=== PATIENT | male | born 1965 | race Caucasian/White ===

== ENCOUNTER 2019-10-26 21:20 | Outpatient (CLI) | payer MEDICARE, BC | END 2019-10-26 21:21 | disposition critical access hospital (66) | LOC: EMS 21:20 | PROVIDERS: ATTEND Surgery | DX: T40.2X1A Poisoning by other opioids, accidental (unintentional), initial encounter (principal); R40.2411 Glasgow coma scale score 13-15, in the field [EMT or ambulance]; R00.0 Tachycardia, unspecified; Y92.003 Bedroom of unspecified non-institutional (private) residence as the place of occurrence of the external cause ==

== ENCOUNTER 2019-10-26 21:40 | Observation (INO) | payer MEDICARE, BC ==
--- NOTE | 2019-10-26 21:47 | ED Physician Documentation ---
History of Present Illness - Stated complaint Stated Complaint: AMS - History obtained from History obtained from: Patient - History of Present Illness Timing: Prior to arrival - Additonal information Additional information: Is a 54-year-old male presents by ambulance with complaints that he passed out at home. They were thinking that he took too many pain medications because he took 5 5 mg OxyContin 10 oxycodone tablets over the course of about 3 hours. He was taking those because he had a partial left foot amputation 13 days ago for a nonhealing wound. Is been staying at his aunts house while he is recuperating and they had just gone out to dinner. They come home and he remembers getting home but that is the last thing that he remembers. According the aunt he had walked in and sat down on the end of his bed and she had walked back out to get something and came right back in and he was slumped over had not fallen off the bed. They pushed him back and he was not breathing she could see his heart racing in his chest. They called 911 and she did do some rescue breaths. Ambulance arrived and did give him adenosine 6 mg IV for reported SVT and also Narcan IV.Patient says he does have a history of SVT in the past. He did not have a seizure and has no history of seizures. Other than the issue going on with his left foot currently he has not had any recent illness. Does not have a sore throat or stuffy nose, no coughing. He did not feel any palpitations. He has had no shortness of breath. Denies history of DVT. Has had no nausea or vomiting. They took the bandage down and changed it today and he said it still looks a little red. He is on clindamycin for that. He does not take anything for rate control for his history of SVT. Review of Systems Constitutional: denies: Fever Ears: denies: Ear pain Nose: denies: Congestion Throat: denies: Sore throat Cardiac: denies: Chest pain / pressure, Palpitations Respiratory: denies: Dyspnea, Cough GI: denies: Nausea, Vomiting, Diarrhea : denies: Dysuria Skin: reports: Other (Healing wound on the left foot) Neurologic: reports: Syncope. denies: Head injury Endocrine: reports: Other (He is diabetic) PD PAST MEDICAL HISTORY - Present Medications Home Medications: Ambulatory Orders Medication Instructions Recorded Confirmed Aspirin Chewable [[place] Heber 81 mg PO DAILY 10/27/19 10/27/19 Aspirin] Clindamycin [Cleocin] 3 cap PO Q8HR 10/27/19 10/27/19 Gabapentin 600 mg PO Q8HR 10/27/19 10/27/19 Lisinopril [Zestril] 20 mg PO DAILY 10/27/19 10/27/19 Naproxen 500 mg PO BID PRN 10/27/19 10/27/19 Ondansetron [Ondansetron Odt] 4 mg PO Q8HR PRN 10/27/19 10/27/19 Oxycodone HCl 5 mg PO BID PRN 10/27/19 10/27/19 Zolpidem Tartrate [Edluar] 10 mg PO QPM PRN 10/27/19 10/27/19 metFORMIN [Glucophage] 500 mg PO BID 10/27/19 10/27/19 - Allergies Allergies/Adverse Reactions: Allergies Allergy/AdvReac Type Severity Reaction Status Date / Time No Known Drug Allergies Allergy Verified 10/26/19 21:50 PD ED PE NORMAL - Vitals Vital signs reviewed: Yes - General General: Alert and oriented X 3, No acute distress, Well developed/nourished - HEENT HEENT: Atraumatic, PERRL, EOMI, Moist mucous membranes, Pharynx benign - Neck Neck: Supple, no meningeal sign, No adenopathy, No JVD - Cardiac Cardiac: No murmur, Strong equal pulses, Other (Tachycardic) - Respiratory Respiratory: No respiratory distress, Clear bilaterally - Abdomen Abdomen: Normal bowel sounds, Soft, Non tender - Derm Derm: Normal color, Warm and dry, No rash - Extremities Extremities: Other (The left lower extremity is wrapped in a cast and Brant wrap bandaging. There is no external staining on this.) - Neuro Neuro: Alert and oriented X 3, inspection machine tender 2-12 intact, No motor deficit, No sensory deficit, Normal speech Results - Vitals Vitals: Vital Signs - 24 hr 10/26/19 10/27/19 10/27/19 21:44 00:11 00:48 Temperature 36.7 C 36.8 C Heart Rate 120 H 110 H 123 H Respiratory 18 18 14 Rate Blood Pressure 150/105 H 138/71 H 137/100 H O2 Saturation 98 95 97 10/27/19 01:05 Temperature Heart Rate 123 H Respiratory 18 Rate Blood Pressure 140/90 H O2 Saturation 99 Oxygen O2 Source Room air - EKG (time done) 8 Rate: Rate (enter#) (118), Tachy Rhythm: Sinus tachycardia Intervals: No: Wide QRS Ischemia: Non specific changes Compare to prior EKG: Old EKG unavailable - Labs Labs: Laboratory Tests 10/26/19 10/26/19 10/26/19 21:57 21:57 23:02 WBC 5.6 RBC 4.16 L Hgb 10.9 L Hct 34.2 L MCV 82.2 MCH 26.2 L MCHC 31.9 L RDW 13.9 Plt Count 197 MPV 10.3 Neut # (Auto) 4.3 Lymph # (Auto) 0.8 L [place] # (Auto) 0.4 Eos # (Auto) 0.1 Baso # (Auto) 0.0 Absolute Nucleated RBC 0.00 Nucleated RBC % 0.0 Sodium 137 Potassium 3.5 Chloride 100 L Carbon Dioxide 28 Anion Gap 9.0 BUN 16 Creatinine 1.3 H Estimated GFR (MDRD) 58 L Glucose 227 H Calcium 8.1 L Total Bilirubin 0.5 AST 13 ALT 12 Alkaline Phosphatase 70 Total Protein 6.4 L Albumin 3.4 Globulin 3.0 Albumin/Globulin Ratio 1.1 Lipase 36 Urine Color YELLOW Urine Clarity CLEAR Urine pH 5.0 Ur Specific Scott >=1.030 H Urine Protein NEGATIVE Urine Glucose (UA) 500 H Urine Ketones NEGATIVE Urine Occult Blood MODERATE H Urine Nitrite NEGATIVE Urine Bilirubin NEGATIVE Urine Urobilinogen 0.2 (NORMAL) Ur Leukocyte Esterase NEGATIVE Urine RBC 11-25 H Urine WBC 0-3 Ur Squamous Epith Cells RARE Squamous Urine Crystals 3-5 Calcium Oxalate Urine Bacteria Rare Urine Casts 26-50 Hyaline Casts Urine Mucus Few Strands Ur Microscopic Review INDICATED Urine Culture Comments NOT INDICATED Ethyl Alcohol < 5.0 - Rads (name of study) CXR Radiology: See rad report (Neg acute) PD MEDICAL DECISION MAKING - ED course Complexity details: reviewed results, re-evaluated patient, d/w patient, d/w family ED course: Labs are normal. Patient is not intoxicated. He is remained awake and alert here. The rhythm strips from the ambulance showed rates in the 140s that appeared to be a narrow complex tachycardia. His heart rate here was in the 1 10-1 20 range. He was given a liter of fluids because his urine did look very concentrated the heart rate remained elevated and in fact was creeping up finally into the 140s. Was given Cardizem 20 mg IV because his blood pressure was also elevated. Discussed with him I think he should be admitted for syncopal episode and the tachycardia he really was not keen on the idea of being admitted but consented after his aunt essentially told him she would not take him home; it would just be too worrisome for her. Departure - Departure Disposition: ED Place in Observation Clinical Impression: Syncope Condition: Good
[2019-10-26] MEDS ORDERED: SODIUM CHLORIDE 0.9% 1,000 ML IV ONE (22:08)
[2019-10-26 22:19] LABS: BASOPHILS % (AUTO) 0.4 %; EOSINOPHILS # (AUTO) 0.1 10^3/uL (0.0-0.7); EOSINOPHILS % (AUTO) 2.1 %; HGB - HEMOGLOBIN 10.9 g/dL (14.0-18.0); LYMPHOCYTES # (AUTO) 0.8 10^3/uL (1.5-3.5); LYMPHOCYTES % (AUTO) 14.3 %; MEAN CORPUSCULAR HEMOGLOBIN 26.2 pg (27.0-31.0); MEAN CORPUSCULAR HGB CONC 31.9 g/dL (32.0-36.0); MEAN CORPUSCULAR VOLUME 82.2 fL (80.0-94.0); MEAN PLATELET VOLUME 10.3 fL (7.4-11.4); MONOCYTES # (AUTO) 0.4 10^3/uL (0.0-1.0); MONOCYTES % (AUTO) 6.4 %; NEUTROPHILS # (AUTO) 4.3 10^3/uL (1.5-6.6); NEUTROPHILS % (AUTO) 76.4 %; PLT - PLATELET COUNT 197 10^3/uL (130-450); RED BLOOD COUNT 4.16 10^6/uL (4.70-6.10); RED CELL DISTRIBUTION WIDTH 13.9 % (12.0-15.0); WHITE BLOOD COUNT 5.6 x10^3/uL (4.8-10.8)
[2019-10-26 22:32] LABS: ALBUMIN 3.4 g/dL (3.2-5.5); ALBUMIN/GLOBULIN RATIO 1.1 (1.0-2.2); ALKALINE PHOSPHATASE 70 IU/L (42-121); ALT ALANINE AMINOTRANSFERASE 12 IU/L (10-60); AST ASPARTATE AMINOTRANSFERASE 13 IU/L (10-42); BILIRUBIN,TOTAL 0.5 mg/dL (0.2-1.0); BUN - BLOOD UREA NITROGEN 16 mg/dL (6-20); CALCIUM 8.1 mg/dL (8.5-10.3); CARBON DIOXIDE - CO2 28 mmol/L (21-32); CHLORIDE 100 mmol/L (101-111); CREATININE 1.3 mg/dL (0.6-1.2); GFR - MDRD 58 (>89); GLUCOSE 227 mg/dL (70-100); LIPASE 36 U/L (22-51); SODIUM 137 mmol/L (135-145); TOTAL PROTEIN 6.4 g/dL (6.7-8.2)
--- NOTE | 2019-10-26 22:44 | XRAY Report ---
Reason: chest pain Procedure Date: 10/26/2019 Accession Number: [id number] / [id number] Procedure: XR - Chest 1 View X-Ray CPT Code: 22220 Final Report FULL RESULT: EXAM: CHEST RADIOGRAPHY EXAM DATE: 10/26/2019 10:21 PM. CLINICAL HISTORY: Chest pain. COMPARISON: None. TECHNIQUE: 1 view. FINDINGS: Lungs/Pleura: No consolidation, airspace disease, pleural effusion or pneumothorax. Very superior bilateral lung apices excluded from the image. Mediastinum: Within exam limitations, the cardiomediastinal contour is normal. IMPRESSION: No acute cardiopulmonary disease seen. RADIA
[2019-10-26 23:37] LABS: BILIRUBIN,URINE NEGATIVE (NEGATIVE); GLUCOSE, URINE (UA) 500 mg/dL (NEGATIVE); KETONES,URINE (UA) NEGATIVE (NEGATIVE); LEUKOCYTE ESTERASE, URINE NEGATIVE (NEGATIVE); NITRITE,URINE NEGATIVE (NEGATIVE); OCCULT BLOOD,URINE MODERATE (NEGATIVE); PROTEIN,URINE NEGATIVE (NEGATIVE); UROBILINOGEN,URINE 0.2 (NORMAL) E.U./dL (NORMAL)
[2019-10-26 23:38] LABS: CLARITY,URINE CLEAR (CLEAR)
[2019-10-26 23:43] LABS: BACTERIA,URINE Rare /HPF (None Seen); MUCUS,URINE Few Strands; SQUAMOUS EPITHELIAL CELL,UR RARE Squamous (<= Few)
[2019-10-26 23:44] LABS: CASTS, URINE 26-50 Hyaline Casts /LPF; CRYSTALS,URINE 3-5 Calcium Oxalate /LPF
[2019-10-27] MEDS ORDERED: diltiaZEM INJ 5 MG/ML VIAL IVP STA (00:40)
[2019-10-27] MEDS ORDERED: SODIUM CHLORIDE FLUSH 0.9% 10 ML SYRINGE IVP PRN (01:11)
[2019-10-27] MEDS ORDERED: POTASSIUM CHLORIDE 20 MEQ TABLET PO ONE (01:17)
--- NOTE | 2019-10-27 01:26 | HISTORY & PHYSICAL EXAMINATION ---
Chief Complaint - Chief Complaint Chief Complaint: Syncope History of Present Illness - Admitted From Admitted From:: Home - History Obtained From Records Reviewed: Yes History obtained from: Patient, Family, ER Physician - History of Present Illness HPI Comment/Other: This is a 54-year-old male with a past medical history significant for type 2 diabetes, arrhythmia, hypertension, recent left foot transmetatarsal amputation who presents today after having a syncopal episode at home. He states he was laying on his bed at around 8 PM when he suddenly passed out. His family witnessed him passing out and noticed that his heart was beating quite fast. They try to wake him up and he would take deep breaths that time but was unresponsive. The immediately called 911 and EMS arrived shortly after and before any intervention was given, the patient had regained consciousness. He was reportedly and SVT with heart rates in the 140s upon EMS arrival. He was given Narcan and 6 mg of adenosine. He states he was a little bit confused immediately after but is now back to his baseline. He states he has had prior episodes of syncope in the past. The most recent was over 10 years ago. He states he was diagnosed with an arrhythmia when he was a child and saw consulting project director at that time but no longer sees a consulting project director. He states he was previously on metoprolol but this was stopped as he was doing well. He reports having palpitations every once in a while but whenever he has that symptom, he bears down and the symptoms resolve. Denies a history of blood clots. He states he did not have chest pain, dyspnea, palpitations prior to the event today. He reports that he did take 5 oxycodone within a 3-hour period which is more than he usually takes as he has been to get once every 4 hours. He has been on oxycodone for nearly 6 years due to multiple interventions on his left foot. He did have a cup of coffee this afternoon and he normally does not drink caffeine. Reports feeling quite thirsty at this time. He states he has been ea ting and drinking okay over the last few days but that he lost about 30 pounds this month as his appetite has been quite poor overall. He reports he has been hospitalized multiple times for interventions on his left foot and that his father was hospitalized for a neck fracture and this has put him under a lot of stress and he has not been eating as well. States his most recent intervention on his left foot was about 2 weeks ago at [facility]. He has had 4 interventions on that foot with the most recent being a transmetatarsal amputation. The splint was removed 3 days ago and the leg is currently bandaged. He is on clindamycin postoperatively. The patient at this time repor ts feeling well and would like to go home. He states he has no chest pain, dyspnea, palpitations, dizziness, lightheadedness. He reports no nausea, vomiting, abdominal pain, diarrhea. In the emergency department, he is found to be afebrile with a temperature of 36.7 C. He was tachycardic with a heart rate of 120 and this was sinus tachycardia on telemetry. He was hypertensive with a blood pressure of 150/105. He was not tachypneic and saturating well on room air. Labs are unremarkable except for a creatinine of 1.3 and a blood glucose of 227. His urinalysis did reveal a specific gravity greater than 1.030 and 26-50 hyaline casts. EKG number department reveals sinus tachycardia without ST segment changes. He was observed emergency department for a couple hours but became tachycardic in the 130s and so he was administered 20 mg of IV Cardizem and medicine was consulted for admission. History - Past Medical History Cardiovascular: reports: Hypertension, Arrhythmia Endocrine/Autoimmune: reports: Type 2 diabetes Musculoskeletal: reports: Other (Left foot infection.) - Past Surgical History Ortho: reports: Other (Multiple interventions on his left foot including transmetatarsal amputation.) - Family & Social History Family History Comment/Other: His mother and aunt both have hypothyroidism. One of his other aunts also had a history of arrhythmias. Living arrangement: At home Living Situation: With family Social History Notes: He has not been employed for 6 years since he has had multiple interventions on his left foot. Previously employed as a valdez. He does not smoke and rarely drinks alcohol. - POLST Patient has POLST: No Meds/Allgy - Home Medications Home Medications: Ambulatory Orders Medication Instructions Recorded Confirmed Aspirin Chewable [St Heber 81 mg PO DAILY 10/27/19 10/27/19 Aspirin] Clindamycin [Cleocin] 3 cap PO Q8HR 10/27/19 10/27/19 Gabapentin 600 mg PO Q8HR 10/27/19 10/27/19 Lisinopril [Zestril] 20 mg PO DAILY 10/27/19 10/27/19 Naproxen 500 mg PO BID PRN 10/27/19 10/27/19 Ondansetron [Ondansetron Odt] 4 mg PO Q8HR PRN 10/27/19 10/27/19 Oxycodone HCl 5 mg PO BID PRN 10/27/19 10/27/19 Zolpidem Tartrate [Edluar] 10 mg PO QPM PRN 10/27/19 10/27/19 metFORMIN [Glucophage] 500 mg PO BID 10/27/19 10/27/19 - Allergies Allergies/Adverse Reactions: Allergies Allergy/AdvReac Type Severity Reaction Status Date / Time No Known Drug Allergies Allergy Verified 10/26/19 21:50 Review of Systems - Constitutional Constitutional: reports: Poor appetite, Weight loss. denies: Fatigue, Fever, Weakness - Cardiovascular Cariovascular: reports: Palpitations, Syncope. denies: Chest pain, Lightheadedness, Exertional dyspnea, Decr. exercise tolerance - Respiratory Respiratory: denies: Cough, SOB at rest, SOB with exertion - Gastrointestinal Gastrointestinal: denies: Abdominal pain, Diarrhea, Nausea, Vomiting - Genitourinary Genitourinary: denies: Dysuria, Frequency, Urgency - Musculoskeletal Musculoskeletal: reports: Joint pain - Integumentary Integumentary: denies: Rash - Neurological Neurological: denies: General weakness, Dizziness - All Other Systems All Other Systems: reports: Reviewed and negative Prior Level of Functionality: He is independent with his ADLs. He is currently using crutches to ambulate as he is nonweightbearing on his left foot. Exam - Vital Signs Reviewed Vital Signs: Yes Vital Signs: Vital Signs x48h Temp Pulse Resp BP Pulse Ox 10/27/19 01:05 123 H 18 140/90 H 99 10/27/19 00:48 36.8 C 123 H 14 137/100 H 97 10/27/19 00:11 110 H 18 138/71 H 95 10/26/19 21:44 36.7 C 120 H 18 150/105 H 98 - Physical Exam General Appearance: positive: No acute distress, Alert Eyes Bilateral: positive: Normal inspection ENT: positive: ENT inspection nml, Dry mucous membranes Neck: positive: Nml inspection Respiratory: positive: No respiratory distress. negative: Wheezes, Rales, Rhonchi Cardiovascular: positive: No murmur, Tachycardia. negative: Irregularly irregular, Bradycardia, Systolic murmur, Diastolic murmur Peripheral Pulses: positive: 2+ Abdomen: positive: Non-tender, No distention. negative: Tenderness, Guarding, Rebound Skin: positive: No rash, Warm, Dry Extremities: positive: Full ROM, No pedal edema, Other (Bandage and dressing is in place over the left lower extremity below the knee to the foot. I did not remove the bandage.) Neurologic/Psychiatric: positive: Oriented x3, Other (No focal motor deficits on exam.). negative: Disoriented to person, Disoriented to place, Disoriented to time Conclusion/Plan - Problem List (1) Syncope Conclusion/Plan: Syncope may be related to SVT but we will need to rule out other etiologies as it is not common for SVT to cause hemodynamic compromise and syncope. His EKG now shows sinus tachycardia without ST segment changes and no shortened MA interval or delta waves to suggest [id number]-Ilala. The multiple tablets of oxycodone may have contributed to syncope as well. He does appear dehydrated and so we will check orthostatics. We will obtain an echocardiogram and trend his troponins. We will monitor him on telemetry. Qualifiers: Encounter type: initial encounter (2) SVT (supraventricular tachycardia) Conclusion/Plan: He reports having a previous history of arrhythmia and was previously on metoprolol. EMS found him in SVT upon arrival with heart rates greater than 140. He was given adenosine 6 mg IV and is now in sinus tachycardia with heart rate in the 120s. We will start him on 25 mg of metoprolol twice a day and obtain echocardiogram. We will check a TSH as well. Continue to monitor him on telemetry and optimize his electrolytes as his potassium is 3.5. (3) Dehydration Conclusion/Plan: Appears slightly hypervolemic on exam and his urinalysis is suggestive of dehydration as the gravity is quite elevated and he has many hyaline casts. We will continue him on IV fluids at 100 cc an hour. (4) Status post transmetatarsal amputation of left foot Conclusion/Plan: He is status post transmetatarsal amputation of the left foot about 2-week ago at [facility] for a left foot infection secondary to hardware. He is on clindamycin which we will continue. We will also resume his home oxycodone. (5) Type 2 diabetes mellitus Conclusion/Plan: Reports his last A1c was around 7 and he is on metformin at home. His blood glucose is greater than 200. We will place him on sliding scale and carb controlled diet. Check an A1c in the morning (6) Hypertension Conclusion/Plan: He is on lisinopril at home and he is currently slightly hypertensive. Will resume his lisinopril and start him on metoprolol for the SVT. - Lab Results Lab results reviewed: Yes Fish Bones: 10/26/19 21:57 10/26/19 21:57 - Diagnostic Imaging Results Diagnostic Imaging Results: positive: Final report reviewed - EKG Results EKG Interpreted Independently: Yes EKG Comparison: No prior EKG EKG Findings: His EKG reveals sinus tachycardia without ST segment changes. There is no shortened MA interval or delta waves to suggest [id number]. Core Measures - Anticipated LOS I expect patient to be DC'd or transferred within 96 hours.: Yes - Issues Hospital Issues and Management Plan: 54-year-old male admitted for syncope after being found in SVT. We will observe overnight and obtain echocardiogram. Start him on metoprolol. - DVT/VTE - Prophylaxis VTE/DVT Device ordered at admit?: No Not Ordered - Medical Reason: Contraindicated VTE/DVT Prophylaxis med ordered at admit?: Yes
[2019-10-27] MEDS: CLINDAMYCIN 150 MG CAPSULE PO SCH ×2 (01:51→08:21)
[2019-10-27] MEDS: METOPROLOL TARTRATE 25 MG TABLET PO SCH ×2 (01:52→08:18)
[2019-10-27] MEDS: ACETAMINOPHEN 325 MG TABLET PO PRN ×3 (01:53→08:19)
[2019-10-27] MEDS: oxyCODONE 5 MG TABLET PO PRN ×3 (01:53→08:19)
[2019-10-27] MEDS ORDERED: LACTATED RINGERS 1,000 ML IV SCH (02:00)
[2019-10-27 05:29] LABS: BASOPHILS % (AUTO) 0.5 %; EOSINOPHILS # (AUTO) 0.2 10^3/uL (0.0-0.7); HGB - HEMOGLOBIN 10.8 g/dL (14.0-18.0); LYMPHOCYTES # (AUTO) 2.1 10^3/uL (1.5-3.5); LYMPHOCYTES % (AUTO) 28.5 %; MEAN CORPUSCULAR HEMOGLOBIN 26.8 pg (27.0-31.0); MEAN CORPUSCULAR HGB CONC 32.5 g/dL (32.0-36.0); MEAN CORPUSCULAR VOLUME 82.4 fL (80.0-94.0); MEAN PLATELET VOLUME 11.3 fL (7.4-11.4); MONOCYTES # (AUTO) 0.5 10^3/uL (0.0-1.0); MONOCYTES % (AUTO) 6.7 %; NEUTROPHILS # (AUTO) 4.6 10^3/uL (1.5-6.6); PLT - PLATELET COUNT 254 10^3/uL (130-450); RED BLOOD COUNT 4.03 10^6/uL (4.70-6.10); WHITE BLOOD COUNT 7.5 x10^3/uL (4.8-10.8)
[2019-10-27 05:44] LABS: HB2 TOTAL 10.9 g/dL; HEMOGLOBIN A1C 0.52 g/dL; HEMOGLOBIN A1C % 6.5 % (4.6-6.2)
[2019-10-27 05:45] LABS: CALCIUM 8.4 mg/dL (8.5-10.3); CREATININE 1.2 mg/dL (0.6-1.2); MAGNESIUM 1.8 mg/dL (1.7-2.8)
[2019-10-27] MEDS ORDERED: GABAPENTIN 300 MG CAPSULE PO SCH (06:00)
[2019-10-27] MEDS ORDERED: INSULIN ASPART 300 UNIT/3 ML PEN SUBQ SCH (08:00)
[2019-10-27 08:28] VITALS: BP 141/87
[2019-10-27] MEDS ORDERED: ENOXAPARIN 40 MG/0.4 ML SYRINGE SUBQ SCH (09:00)
[2019-10-27] MEDS ORDERED: ASPIRIN EC 81 MG TABLET PO SCH (09:00)
[2019-10-27] MEDS ORDERED: lisinopriL 20 MG TABLET PO SCH (09:00)
[2019-10-27] MEDS ORDERED: SODIUM CHLORIDE FLUSH 0.9% 10 ML SYRINGE IVP SCH (09:00)
--- NOTE | 2019-10-27 10:16 | PHARMACY PROGRESS NOTE ---
- Best Possible Medication History Admit Date and Time: 10/27/19 0111 Processed by: Nursing (HARPREET ACOSTA) Medication History completed: Yes As the person ultimately responsible for medication therapy, providers are able to order a medication from an existing home medication list in [facility] via the "Reconcile Routine" prior to Confirmation of that medication by operations support specialist. Such practice is discouraged except when the physician, in their clinical judgment, deems that a medical need exists for a medication without regard to previous use.
--- NOTE | 2019-10-27 11:12 | DISCHARGE SUMMARY ---
Discharge Summary Admit Date: 10/27/19 Discharge Date: 10/27/19 Discharging Provider: Ashok Galarza Primary Care Provider: Dr. Dickinson Code Status: Attempt Resuscitation Condition at Discharge: Poor Discharge Disposition: 07 Against Medical Advice Discharge Facility Name: home - DIAGNOSES Admission Diagnoses: (1) Syncope (2) SVT (supraventricular tachycardia) (3) Dehydration (4) Status post transmetatarsal amputation of left foot (5) Type 2 diabetes mellitus (6) Hypertension Discharge Diagnoses with Status of Each Condition: 1) Syncope stable. pt has no syncope in hospital. multiple tablets of oxycodone may have contributed to syncope as well as his dehydrated. pt has unremarkable ECHO. pt has already signed AMA in the district loss prevention manager before I have his test result. I do not know why he want to sign AMA, why pt is so san[place] to sign AMA and left h ospital. I have no time to write down the risk of AMA. Pt followed with me to our hospitalist office, and I tried to help him write a metoprolol prescribe for him. Pt state he took Metoprolol before but he stopped it by himself. Nurse Rosario is with me at the time pt signed AMA (2) SVT (supraventricular tachycardia) resolved. pt is prescribed metoprolol (3) Dehydration resolved (4) Status post transmetatarsal amputation of left foot stable (5) Type 2 diabetes mellitus stable (6) Hypertension stable (7)AMA pt has already signed AMA in the district loss prevention manager before I have his test result. I do not know why he want to sign AMA, why pt is so san[place]ria to sign AMA and left hospital. I have no time to write down the risk of AMA. Pt followed with me to our hospitalist office, and I tried to help him write a metoprolol prescribe for him. Pt state he took Metoprolol before but he stopped it by himself. Nurse Rosario is with me at the time pt signed AMA - [facility] History of Present Illness: refer from Dr. Griffiths's HPI on 10/27/2019 This is a 54-year-old male with a past medical history significant for type 2 diabetes, arrhythmia, hypertension, recent left foot transmetatarsal amputation who presents today after having a syncopal episode at home. He states he was laying on his bed at around 8 PM when he suddenly passed out. His family witnessed him passing out and noticed that his heart was beating quite fast. They try to wake him up and he would take deep breaths that time but was unresponsive. The immediately called 911 and EMS arrived shortly after and before any intervention was given, the patient had regained consciousness. He was reportedly and SVT with heart rates in the 140s upon EMS arrival. He was given Narcan and 6 mg of adenosine. He states he was a little bit confused immediately after but is now back to his baseline. He states he has had prior episodes of syncope in the past. The most recent was over 10 years ago. He states he was diagnosed with an arrhythmia when he was a child and saw industrial garage servicer at that time but no longer sees a industrial garage servicer. He states he was previously on metoprolol but this was stopped as he was doing well. He reports having palpitations every once in a while but whenever he has that symptom, he bears down and the symptoms resolve. Denies a history of blood clots. He states he did not have chest pain, dyspnea, palpitations prior to the event today. He reports that he did take 5 oxycodone within a 3-hour period which is more than he usually takes as he has been to get once every 4 hours. He has been on oxycodone for nearly 6 years due to multiple interventions on his left foot. He did have a cup of coffee this afternoon and he normally does not drink caffeine. Reports feeling quite thirsty at this time. He states he has been eating and drinking okay over the last few days but that he lost about 30 pounds this month as his appetite has been quite poor overall. He reports he has been hospitalized multiple times for interventions on his left foot and that his father was hospitalized for a neck fracture and this has put him under a lot of stress and he has not been eating as well. States his most recent intervention on his left foot was about 2 weeks ago at [facility]. He has had 4 interventions on that foot with the most recent being a transmetatarsal amputation. The splint was removed 3 days ago and the leg is currently bandaged. He is on clindamycin postoperatively. The patient at this time reports feeling well and would like to go home. He states he has no chest pain, dyspnea, palpitations, dizziness, lightheadedness. He reports no nausea, vomiting, abdominal pain, diarrhea. In the emergency department, he is found to be afebrile with a temperature of 36.7 C. He was tachycardic with a heart rate of 120 and this was sinus tachycardia on telemetry. He was hypertensive with a blood pressure of 150/105. He was not tachypneic and saturating well on room air. Labs are unremarkable except for a creatinine of 1.3 and a blood glucose of 227. His urinalysis did reveal a specific gravity greater than 1.030 and 26-50 hyaline casts. EKG number department reveals sinus tachycardia without ST segment changes. He was observed emergency department for a couple hours but became tachycardic in the 1 30s and so he was administered 20 mg of IV Cardizem and medicine was consulted for admission. - HOSPITAL COURSE Hospital Course: pt was admitted for syncope. but pt signed AMA and left hospital. At the time pt signed AMA, I did not have pt's ECHO result yet. I do not know why he want to sign AMA, why pt is so san[place] to sign AMA and left hospital. I do not have choice to talk with pt, pt already signed AMA. I have no time to write down the risk of AMA. Pt followed with me to our hospitalist office, and I tried to help him write a metoprolol prescribe for him. Pt state he took Metoprolol before but he stopped it by himself. Nurse Rosario is with me at the time pt signed AMA 1) Syncope stable. pt has no syncope in hospital. multiple tablets of oxycodone may have contributed to syncope as well as his dehydrated. pt has unremarkable ECHO. pt has already signed AMA in the district loss prevention manager before I have his test result. I do not know why he want to sign AMA, why pt is so san[place] to sign AMA and left hospital. I have no time to write down the risk of AMA. Pt followed with me to our hospitalist office, and I tried to help him write a metoprolol prescribe for him. Pt state he took Metoprolol before but he stopped it by himself. Nurse Rosario is with me at the time pt signed AMA (2) SVT (supraventricular tachycardia) resolved. pt is prescribed metoprolol (3) Dehydration resolved (4) Status post transmetatarsal amputation of left foot stable (5) Type 2 diabetes mellitus stable (6) Hypertension stable (7)AMA pt has already signed AMA in the district loss prevention manager before I have his test result. I do not know why he want to sign AMA, why pt is so san[place] to sign AMA and left hospital. I have no time to write down the risk of AMA. Pt followed with me to our hospitalist office, and I tried to help him write a metoprolol prescribe for him. Pt state he took Metoprolol before but he stopped it by himself. Nurse Marlene is with me at the time pt signed AMA - ALLERGIES Allergies/Adverse Reactions: Allergies Allergy/AdvReac Type Severity Reaction Status Date / Time No Known Drug Allergies Allergy Verified 10/26/19 21:50 - MEDICATIONS Home Medications: Ambulatory Orders Medication Instructions Recorded Confirmed Aspirin Chewable [St Heber 81 mg PO DAILY 10/27/19 10/27/19 Aspirin] Clindamycin [Cleocin] 3 cap PO Q8HR 10/27/19 10/27/19 Gabapentin 600 mg PO Q8HR 10/27/19 10/27/19 Lisinopril [Zestril] 20 mg PO DAILY 10/27/19 10/27/19 Metoprolol Succinate 25 mg PO DAILY #15 tab.er.24h 10/27/19 Naproxen 500 mg PO BID PRN 10/27/19 10/27/19 Ondansetron [Ondansetron Odt] 4 mg PO Q8HR PRN 10/27/19 10/27/19 Oxycodone HCl 5 mg PO BID PRN 10/27/19 10/27/19 Zolpidem Tartrate [Edluar] 10 mg PO QPM PRN 10/27/19 10/27/19 metFORMIN [Glucophage] 500 mg PO BID 10/27/19 10/27/19 - PHYSICAL EXAM AT DISCHARGE Physical Exam Other/Comments: pt left with AMA, I do not have time to do physical examination to pt - LABS Result Diagrams: 10/27/19 05:00 10/27/19 05:00 - FOLLOW UP Follow Up: advise pt followup his PCP and industrial garage servicer - TIME SPENT Time Spent in Discharge (Minutes): 30
== END 2019-10-27 10:05 | disposition left against medical advice (07) ==
LOC: ED 21:40 → MS3 10-27 01:11
PROVIDERS: ADMIT Internal Medicine; ATTEND Nurse Practitioner Gerontology
DX: R55 Syncope and collapse (principal); I47.1 Supraventricular tachycardia; E86.0 Dehydration; Z89.432 Acquired absence of left foot; E11.9 Type 2 diabetes mellitus without complications; I10 Essential (primary) hypertension; Z53.21 Procedure and treatment not carried out due to patient leaving prior to being seen by health care provider; Z79.82 Long term (current) use of aspirin; Z79.891 Long term (current) use of opiate analgesic; Z79.84 Long term (current) use of oral hypoglycemic drugs
CPT/HCPCS: 36415; 71045; 80048; 80053; 81001; 83036; 83690; 83735; 84439; 84443; 84484; 85025; 93005; 93306; 96361; 96372; 96374; 99284; 99285; A9270; G0378; J1650; J7120; 80320; 81003; 87086

== ENCOUNTER 2020-02-21 14:14 | Emergency (ER) | payer MEDICARE, BC ==
--- NOTE | 2020-02-21 14:49 | ED Physician Documentation ---
PD HPI SKIN - Stated complaint Stated Complaint: R FOOT PX - Chief complaint Chief Complaint: Ext Problem - History obtained from History obtained from: Patient - History of Present Illness Timing - onset: How many days ago (1-2) Timing - duration: Days (Patient has had a ulceration on the plantar aspect near the first metatarsal head on the bottom of the right foot for almost 4 months. It had ulceration to the area and at times had had some mild discharge and slow healing. He had been prescribed some clindamycin for it and it had started to heal in. He had had some leftover antibiotics when it was draining again a week or 2 ago and use the clindamycin again. He contacted his primary care to get a refill of the prescription but his primary care had not called back. He is not been on any antibiotics for several days now. In the last 1 to 2 days he had noticed considerable abrupt onset of redness swelling on the dorsum of the right foot and today was having a bubbling up of the soft tissue on the dorsal aspect. He is having considerable pain in the foot and is concerned about a bone infection.) Timing - details: Abrupt onset Location: RLE (He had a pressure ulceration on the bottom of the right foot for the last several months. It started after a wound infection of the left foot with subsequent osteomyelitis and leading to amputation of the left foot. He was then using crutches and on his right foot primarily. This was September 2019 done in [facility] by the foot and ankle service. Being more on crutches with just the right foot he developed the above-noted pressure sore and has had problems with some superficial infection of that until now with the significant redness and swelling of the distal foot) Quality / character: Painful, Discolored (red), Swelling. No: Draining Review of Systems Constitutional: reports: Myalgias. denies: Fever, Chills Nose: denies: Rhinorrhea / runny nose, Congestion Throat: denies: Sore throat Respiratory: denies: Cough GI: denies: Nausea, Vomiting, Diarrhea Skin: reports: Rash Neurologic: denies: Focal weakness, Numbness PD PAST MEDICAL HISTORY - Past Medical History Cardiovascular: Hypertension, Arrhythmia Respiratory: None Endocrine/Autoimmune: None Musculoskeletal: Other - Past Surgical History Past Surgical History: Yes Ortho: Other - Present Medications Home Medications: Ambulatory Orders Medication Instructions Recorded Confirmed Aspirin Chewable [St Heber 81 mg PO DAILY 10/27/19 10/27/19 Aspirin] Clindamycin [Cleocin] 3 cap PO Q8HR 10/27/19 10/27/19 Gabapentin 600 mg PO Q8HR 10/27/19 10/27/19 Lisinopril [Zestril] 20 mg PO DAILY 10/27/19 10/27/19 Metoprolol Succinate 25 mg PO DAILY #15 tab.er.24h 10/27/19 Naproxen 500 mg PO BID PRN 10/27/19 10/27/19 Ondansetron [Ondansetron Odt] 4 mg PO Q8HR PRN 10/27/19 10/27/19 Oxycodone HCl 5 mg PO BID PRN 10/27/19 10/27/19 Zolpidem Tartrate [Edluar] 10 mg PO QPM PRN 10/27/19 10/27/19 metFORMIN [Glucophage] 500 mg PO BID 10/27/19 10/27/19 Clindamycin HCl [Clindamycin 300MG 300 mg PO Q6H #28 capsule 02/21/20 CAP] Oxycodone HCl/Acetaminophen 1 each PO TID PRN #20 tablet 02/21/20 [Percocet 5-325 mg Tablet] rifAMPin [Rifadin] 150 mg PO BID #14 capsule 02/21/20 - Allergies Allergies/Adverse Reactions: Allergies Allergy/AdvReac Type Severity Reaction Status Date / Time No Known Drug Allergies Allergy Verified 02/21/20 14:29 - Living Situation Living Situation: reports: Alone Living Arrangement: reports: At home (He states he lives in [place]. He is now moved down to the [place] here recently. Is staying with friends.) - Social History Does the pt smoke?: Yes Smoking Status: Never smoker - Immunizations Immunizations are current?: Yes - POLST Patient has POLST: No PD ED PE NORMAL - Vitals Vital signs reviewed: Yes - General General: Alert and oriented X 3, Well developed/nourished - Neck Neck: Supple, no meningeal sign, No adenopathy - Cardiac Cardiac: RRR, No murmur - Respiratory Respiratory: Clear bilaterally - Derm Derm: Normal color, Warm and dry - Extremities Extremities: Other (The left foot shows a partial amputation at the proximal metatarsals. It is bandaged and there is no noted redness or swelling proximal of the bandaging. The right foot shows a round healing in ulceration on the plantar aspect near the first metatarsal head. It is about 2 cm in diameter with minimal redness at the edges. There is some thickening of skin along part of it. The central portion has good pink granulation tissue. The dorsum of the foot however in the webspace between the great and second toes shows a bubbling fluctuant area which is incised readily with a thin covering. I just used a scalpel tip to rosey at it was able to get some purulence out. Cultures obtained. Will irrigate it well. There is redness of the dorsum of the foot extending to the mid foot as well. There is no calf tenderness no ankle area swelling.) - Neuro Neuro: Alert and oriented X 3, No motor deficit, No sensory deficit, Normal speech Results - Vitals Vitals: Vital Signs - 24 hr 02/21/20 02/21/20 02/21/20 14:16 16:44 18:19 Temperature 37.2 C Heart Rate 108 H 86 83 Respiratory 20 18 16 Rate Blood Pressure 120/74 135/85 H 145/89 H O2 Saturation 97 100 99 Oxygen O2 Source Room air - Labs Labs: Microbiology 02/21/20 14:55 Wound Culture - Preliminary Foot - Right Laboratory Tests 02/21/20 02/21/20 02/21/20 15:29 15:29 15:29 WBC 9.5 RBC 5.02 Hgb 12.4 L Hct 39.5 L MCV 78.7 L MCH 24.7 L MCHC 31.4 L RDW 15.1 H Plt Count 379 MPV 9.7 Neut # (Auto) 7.5 H Lymph # (Auto) 1.2 L Isabella # (Auto) 0.6 Eos # (Auto) 0.2 Baso # (Auto) 0.0 Absolute Nucleated RBC 0.00 Nucleated RBC % 0.0 ESR 14 Sodium 136 Potassium 3.7 Chloride 95 L Carbon Dioxide 33 H Anion Gap 8.0 BUN 12 Creatinine 0.9 Estimated GFR (MDRD) 89 Glucose 188 H Calcium 9.0 Total Bilirubin 0.7 AST 17 ALT 26 Alkaline Phosphatase 200 H C-Reactive Protein 19.7 H Total Protein 8.2 Albumin 3.4 Globulin 4.8 H Albumin/Globulin Ratio 0.7 L Lipase 24 - Rads (name of study) foot CT Radiology: Prelim report reviewed (Soft tissue abscess and soft tissue inflammation around the base of the first metatarsal head and the MTP joint as well as some bone irregularity at the edges of the first and second metatarsal heads concerning for osteomyelitis.), See rad report PD MEDICAL DECISION MAKING - ED course Complexity details: reviewed results, considered differential (This appears to be a deep space infection in the webbing between the great and second toe originating from the plantar wound. There is an abscess which is incised and drained and irrigated. However there is cellulitic changes in the soft tissue as well. He had been on clindamycin recently though not in the last several days. This developed despite that. I feel he needs a better IV dosing and of antibiotics and likely some irrigation or debridement and wound care to optimize clearing of the infection. We will get CT scan and lab test to look for evidence of osteo-at this time.), d/w patient, d/w wine consultant (I talked with Dr. Antony who is on-call for orthopedics. He thought the patient would be better at the [facility] foot and ankle as he had had prior surgery there on his other foot. Dr. maddox did not specify the particulars as to why he felt it was beyond our hospital service ability.) ED course: I talked with [facility] orthopedics who felt the patient is likely to need debridement and possible partial amputation of the toe or the end of the metatarsal head more locally. They would prefer to do it outpatient surgically and given that his vitals and labs are normal did not feel that he needed hospitalization. They felt comfortable with the IV dose of Vanco and then to place him on clindamycin and pain medicine and they will call tomorrow to set up an outpatient surgical appointment and debridement for either or Wednesday this week. Departure - Departure Disposition: 01 Home, Self Care Clinical Impression: Foot abscess, right, Cellulitis of foot Plantar ulcer of right foot Qualifiers: Non-pressure ulcer stage: unspecified non-pressure ulcer stage Qualified Code(s): L97.519 - Non-pressure chronic ulcer of other part of right foot with unspecified severity Osteomyelitis of right foot Qualifiers: Osteomyelitis type: unspecified type Qualified Code(s): M86.9 - Osteomyelitis, unspecified Condition: Stable Record reviewed to determine appropriate education?: Yes Instructions: ED Infec Skin Cellulitis Follow-Up: GIO MONDRAGON MD [Primary Care Provider] - Prescriptions: Clindamycin HCl [Clindamycin 300MG CAP] 300 mg PO Q6H #28 capsule Oxycodone HCl/Acetaminophen [Percocet 5-325 mg Tablet] 1 each PO TID PRN #20 tablet PRN Reason: pain rifAMPin [Rifadin] 150 mg PO BID #14 capsule Comments: Cleanse the alberto area or soak it briefly and soap and water 2 or 3 times daily. Dry dressing over it to promote drainage. Use the antibiotics clindamycin and rifampin as directed. Use ibuprofen or naproxen 2-3 times daily and to that add Percocet if needed for pain. The [facility] orthopedic/foot and ankle clinic will call you tomorrow to set up an appointment for the end of the week for planned surgical debridement and possible partial amputation near the base of the toe. Return sooner if fever, vomiting, expanding redness or other concerns. Discharge Date/Time: 02/21/20 18:55
[2020-02-21] MEDS ORDERED: VANCOMYCIN INJ 1 GM in SODIUM CHLORIDE 0.9% 500 ML IV STA (15:17)
[2020-02-21] MEDS ORDERED: SODIUM CHLORIDE 0.9% 1,000 ML IV ONE (15:22)
[2020-02-21] MEDS ORDERED: KETOROLAC 30 MG/ML VIAL IVP STA (15:22)
[2020-02-21] MEDS ORDERED: MORPHINE 2 MG/ML CARPUJECT IVP STA ×2 (15:22→17:08)
[2020-02-21 15:33] LABS: BASOPHILS % (AUTO) 0.3 %; EOSINOPHILS # (AUTO) 0.2 10^3/uL (0.0-0.7); EOSINOPHILS % (AUTO) 1.6 %; HGB - HEMOGLOBIN 12.4 g/dL (14.0-18.0); LYMPHOCYTES # (AUTO) 1.2 10^3/uL (1.5-3.5); LYMPHOCYTES % (AUTO) 12.8 %; MEAN CORPUSCULAR HEMOGLOBIN 24.7 pg (27.0-31.0); MEAN CORPUSCULAR HGB CONC 31.4 g/dL (32.0-36.0); MEAN CORPUSCULAR VOLUME 78.7 fL (80.0-94.0); MEAN PLATELET VOLUME 9.7 fL (7.4-11.4); MONOCYTES # (AUTO) 0.6 10^3/uL (0.0-1.0); NEUTROPHILS # (AUTO) 7.5 10^3/uL (1.5-6.6); NEUTROPHILS % (AUTO) 78.8 %; PLT - PLATELET COUNT 379 10^3/uL (130-450); RED BLOOD COUNT 5.02 10^6/uL (4.70-6.10); RED CELL DISTRIBUTION WIDTH 15.1 % (12.0-15.0); WHITE BLOOD COUNT 9.5 x10^3/uL (4.8-10.8)
[2020-02-21] MEDS ORDERED: IOVERSOL 320 100 ML VIAL IVP ONE ×2 (15:41→16:39)
[2020-02-21 16:05] LABS: ALBUMIN 3.4 g/dL (3.2-5.5); ALBUMIN/GLOBULIN RATIO 0.7 (1.0-2.2); BILIRUBIN,TOTAL 0.7 mg/dL (0.2-1.0); CREATININE 0.9 mg/dL (0.6-1.2); CRP - C-REACTIVE PROTEIN 19.7 mg/dL (0-1.0); TOTAL PROTEIN 8.2 g/dL (6.7-8.2)
[2020-02-21] MEDS ORDERED: cefTRIAXone 1 GM VIAL IVP STA (17:21)
--- NOTE | 2020-02-21 17:43 | CT Report ---
Reason: right foot infection; eval for abscess/osteo Procedure Date: 02/21/2020 Accession Number: [id number] / [id number] Procedure: CT - LOWER EXTREMITY W - RT CPT Code: Final Report FULL RESULT: EXAM: RIGHT LOWER EXTREMITY CT WITH CONTRAST EXAM DATE: 02/21/2020 04:31 PM. CLINICAL HISTORY: Right foot infection; evaluate for abscess/osteo. COMPARISON: None. TECHNIQUE: Thin-section axial images were acquired of the lower extremity from the lower tibia to the foot after administration of intravenous contrast. IV contrast: OPTIRAY 320. Post-processing: Coronal and sagittal reformats. Other: None. In accordance with CT protocol optimization, one or more of the following dose reduction techniques were utilized for this exam: automated exposure control, adjustment of mA and/or KV based on patient size, or use of iterative reconstructive technique. FINDINGS: Bones: Osteopenic changes and some articular erosive and destructive changes are seen at the first and second MTP joints. At this location, there is also a small gas-outlined presumed fistulous tract located at the first interspace directed in close proximity to the first MTP joint. Series 3 image 224. At this location, there is also a focal fluid collection with gas bubbles within it and a medial plantar ulceration. Series 9 images 239-248. Sagittals also show small bubbles of gas immediately adjacent to the medial sesamoid and the plantar aspect of the first distal metatarsal. Series 7 image 8. Also noted is a lateral compression plate and screws at the distal fibula. Some chronic periosteal thickening also seen at the lateral aspect of the tibia. Chronic fracture anterior process of the calcaneus. Series 7 image 48. Small old evulsion versus heterotopic bone at the anterior medial aspect of the distal medial malleolus. Series 7 image 34. Joints: Remaining joints of the third-fifth toes and midfoot appear unremarkable. Musculature: Soft tissue swelling and abnormal enhancement seen at the plantar aspect of the forefoot. Other: No radiopaque foreign material. First interspace shows broad soft tissue fullness which is nonanatomic, showing heterogeneous enhancement, thought to be granulomatous/scar tissue. IMPRESSION: 1. Ulceration plantar medial aspect of the foot adjacent to the first MTP joint. Large soft tissue presumed granulomatous reaction seen at the first interspace with a gas-filled fistulous tract noted at the lateral aspect of the first MTP joint. Focal abscess also seen in the plantar aspect of the first MTP joint. 2. Bony irregularity and some erosive changes on both sides of the first and second MTP joint. 3. These features are worrisome for septic joints, osteomyelitis, abscess formation and fistulous tract to the first MTP joint. There are also features of posterior myelitis involving the second MTP joint as well. RAD[facility]
[2020-02-21 18:19] VITALS: BP 145/89
== END 2020-02-21 18:55 | disposition home or self-care (01) ==
LOC: ED 14:14
DX: L02.611 Cutaneous abscess of right foot (principal); L03.115 Cellulitis of right lower limb; L97.519 Non-pressure chronic ulcer of other part of right foot with unspecified severity; M86.9 Osteomyelitis, unspecified; I10 Essential (primary) hypertension
CPT/HCPCS: 10060; 36415; 73701; 80053; 83690; 85025; 85651; 86140; 87070; 87181; 87205; 96365; 96366; 96375; 99284; J3370; Q9967